=== PATIENT | female | born 1930 | race Caucasian/White ===

== ENCOUNTER 2016-12-17 12:29 | Day surgery (SDC) | payer OTHER ==
[~2016-12-17] VITALS: Ht 160 cm; Wt 68.0 kg
[~2016-12-17 12:29] MED LIST: AMIODARONE HCL200 MG PO; ASPIR-LOW81 MG PO; ASPIRIN EC325 MG PO; CALCITRIOL0.25 MCG PO; CARAFATE1 GM PO; CARDIZEM CD,CA180 MG PO; CELEBREX200 MG PO; COUMADIN,JANTO1.5 MG PO; COUMADIN3 M1 PO; DILTIAZEM 24HR180 MG PO; DIOVAN HCT 31 TABLET PO; DIOVAN160 MG PO; DIOVAN320 MG PO; GABAPENTIN300 MG PO; HYDROCODON-ACE1 EAC7 PO; IRON325 MG PO; Lasix PO; NEURONTIN300 MG PO; NORVASC2.5 MG PO; PANTOPRAZOLE SO40 MG PO; PRILOSEC20 MG PO; PROTONIX40 MG PO; Pradaxa PO; PriLOSEC; ROCALTROL0.25 MCG PO; SODIUM CHLOR1L 0.9 IV; SUCRALFATE1 GM PO; TOPROL XL50 MG PO; TYLENOL EXTRA500 MG PO; VALSARTAN-HCTZ1 EAC4 PO; VITAMIN B COMP1 EACH PO; VITAMIN D; VITAMIN D-32000 UNI2 PO; VITAMIN D-32000 UNIT PO; VITAMIN D1000 INTUN PO; VITAMIN D31000 UNIT PO; VITAMIN E400 UNI1 PO; VITAMIN E400 UNI6 PO; VITAMIN E400 UNIT PO; Vitamin D-3 PO; XARELTO10 MG PO
== END 2016-12-17 15:30 | disposition home or self-care (01) ==
LOC: CATH 12:29
PROC: 0JPT0PZ Removal of Cardiac Rhythm Related Device from Trunk Subcutaneous Tissue and Fascia, Open Approach (ICD-10-PCS; principal; 2016-12-17)
PROC: 0JH606Z Insertion of Pacemaker, Dual Chamber into Chest Subcutaneous Tissue and Fascia, Open Approach (ICD-10-PCS; principal; 2016-12-17)
DX: Z45.010 Encounter for checking and testing of cardiac pacemaker pulse generator [battery] (principal); I48.2 Chronic atrial fibrillation; I10 Essential (primary) hypertension; K21.9 Gastro-esophageal reflux disease without esophagitis; E66.3 Overweight; Z68.27 Body mass index [BMI] 27.0-27.9, adult
CPT/HCPCS: C1785; J0690; J1200; J2250; J3010; S0020